=== PATIENT | male | born 2000 | race Caucasian/White ===

== ENCOUNTER 2020-07-16 18:44 | Emergency (ER) | payer MEDICAID ==
[2020-07-16 19:24] LABS: BILIRUBIN,URINE NEGATIVE (NEGATIVE); GLUCOSE, URINE (UA) NEGATIVE (NEGATIVE); KETONES,URINE (UA) TRACE mg/dL (NEGATIVE); LEUKOCYTE ESTERASE, URINE NEGATIVE (NEGATIVE); NITRITE,URINE NEGATIVE (NEGATIVE); OCCULT BLOOD,URINE MODERATE (NEGATIVE); PROTEIN,URINE TRACE mg/dL (NEGATIVE); UROBILINOGEN,URINE 0.2 (NORMAL) E.U./dL (NORMAL)
[2020-07-16 19:29] LABS: BACTERIA,URINE Rare /HPF (None Seen); CLARITY,URINE CLEAR (CLEAR); MUCUS,URINE Few Strands; SQUAMOUS EPITHELIAL CELL,UR FEW Squamous (<= Few); WBC,URINE 0-3 /HPF (0-3)
[2020-07-16] MEDS ORDERED: ACETAMINOPHEN 325 MG TABLET PO STA (19:42)
--- NOTE | 2020-07-16 22:28 | ED Physician Documentation ---
History of Present Illness - Stated complaint Stated Complaint: MALE - Chief complaint Chief Complaint: Abd Pain - History obtained from History obtained from: Patient - Additonal information Additional information: 19-year-old man, previously healthy presents with right testicular swelling and pain sudden in onset Wednesday after masturbating, improving after going to sleep and waking up asymptomatic on Wednesday. Patient denies possibility of STIs, stating that he has never been sexually active. denies urinary sx, penile discharge, lesions, lice or other abnormalities. He states he had a similar thing happen a couple years ago but it was milder and that's why he didn't come in right away. Review of Systems GI: denies: Abdominal Pain : reports: Testicular pain. denies: Dysuria, Frequency, Hesitancy, Testicular mass Skin: denies: Lesions, Abrasion (s), Laceration (s), Bite / sting Musculoskeletal: denies: Back pain PD PAST MEDICAL HISTORY - Present Medications Home Medications: Ambulatory Orders Medication Instructions Recorded Confirmed No Known Home Medications 07/16/20 07/16/20 - Allergies Allergies/Adverse Reactions: Allergies Allergy/AdvReac Type Severity Reaction Status Date / Time No Known Drug Allergies Allergy Verified 07/16/20 18:53 PD ED PE NORMAL - Vitals Vital signs reviewed: Yes - General General: Alert and oriented X 3, No acute distress, Well developed/nourished - HEENT HEENT: Atraumatic, PERRL, EOMI - Abdomen Abdomen: Non tender, Non distended - Male Male : 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 uncircumcised penis, clean with no visible smegma, lesions, discharge, or abnormalities) - Back Back: No CVA TTP - Derm Derm: Normal color, Warm and dry - Extremities Extremities: No deformity - Neuro Neuro: Alert and oriented X 3 - Psych Psych: Normal mood, Normal affect Results - Vitals Vitals: Vital Signs - 24 hr 07/16/20 07/16/20 07/16/20 18:53 22:35 22:36 Temperature 37.3 C 37.2 C 37.2 C Heart Rate 110 H 89 89 Respiratory 16 16 16 Rate Blood Pressure 132/88 H 130/72 130/72 O2 Saturation 97 100 100 Oxygen O2 Source Room air - Labs Labs: Laboratory Tests 07/16/20 07/16/20 19:09 19:09 Urine Color YELLOW Urine Clarity CLEAR Urine pH 6.0 Ur Specific [place] >=1.030 H Urine Protein TRACE Urine Glucose (UA) NEGATIVE Urine Ketones TRACE Urine Occult Blood MODERATE H Urine Nitrite NEGATIVE Urine Bilirubin NEGATIVE Urine Urobilinogen 0.2 (NORMAL) Ur Leukocyte Esterase NEGATIVE Urine RBC 6-10 H Urine WBC 0-3 Ur Squamous Epith Cells FEW Squamous Urine Bacteria Rare Urine Mucus Few Strands Ur Microscopic Review INDICATED Urine Culture Comments NOT INDICATED Chlam trachomat DNA PCR NEGATIVE N.gonorrhoeae DNA (PCR) NEGATIVE T. vaginalis (PCR) TNP PD MEDICAL DECISION MAKING - ED course ED course: 19-year-old presents with normal testicular exam and normal scrotal ultrasound with the exception of mild hyperemia to the epididymis which I discussed with the patient. He will follow up outpatient urology. Strict return precautions discussed. Departure - Departure Disposition: 01 Home, Self Care Clinical Impression: Testicular pain Condition: Good Instructions: ED Testicular Pain [facility] Follow-Up: Judy Clement MD [Physician No Access] - Comments: You were seen in the emergency department for testicular pain that happened a couple days ago. You have good blood flow to both testicles and had a normal physical exam. The only thing we found on ultrasound was that you have increased blood flow to the right epididymis, which is a part of your testicle on the top and back. you should follow-up with urology this week for further evaluation. Return to the emergency department if you experience any new or worsening symptoms or have other concerns. Discharge Date/Time: 07/16/20 22:36
--- NOTE | 2020-07-16 22:28 | Ultrasound Report ---
PROCEDURE: Testicle w/Doppler INDICATIONS: testicular swelling since wednesday TECHNIQUE: Real-time scanning was performed of the scrotum and testicles, with image documentation. Color and p ulse Doppler interrogation was performed of both testicles. COMPARISON: None. FINDINGS: Right: Testicle is normal in size at 3.8 x 1.7 x 3.1 cm, and homogenous in echotexture. Epididymis is normal in overall size and morphology. No hydrocele or varicoceles. Overlying scrotal skin is no rmal in thickness. Left: Testicle is normal in size at 3.4 x 1.6 x 2 cm, and homogeneous in echotexture. Epididymis is normal in overall size and morphology. No hydrocele or varicoceles. Overlying scrotal skin is norm al in thickness. Doppler: Color and pulse Doppler demonstrate slightly asymmetrically increased vascularity within th e right epididymis and testicle on color Doppler interrogation. IMPRESSION: 1. Slight asymmetric increased vascularity within the right epididymis and testicle compared to the l eft may reflect a mild epididymoorchitis. Reviewed by: Sampson Moy MD on 07/16/2020 10:27 PM PDT Approved by: Sampson Moy MD on 07/16/2020 10:27 PM PDT Station ID: [id number]
[2020-07-16 22:36] VITALS: BP 130/72
[2020-07-17 00:07] LABS: CHLAMYDIA TRACHOMATIS DNA NEGATIVE (NEGATIVE); NEISSERIA GONORRHOEAE DNA NEGATIVE (NEGATIVE)
== END 2020-07-16 22:36 | disposition home or self-care (01) ==
LOC: ED 18:44
DX: N50.811 Right testicular pain (principal); R68.89 Other general symptoms and signs
CPT/HCPCS: 76870; 81001; 87491; 87591; 93975; 99284; A9270; 81003; 87086; 87661

== ENCOUNTER 2020-09-06 16:41 | Emergency (ER) | payer MEDICAID ==
[2020-09-06 16:49] VITALS: BP 137/84
--- NOTE | 2020-09-06 17:42 | ED Physician Documentation ---
History of Present Illness - Stated complaint Stated Complaint: FACE SWELLING/NOSE PX - Chief complaint Chief Complaint: Heent - Additonal information Additional information: 19-year-old male presents emergency department for evaluation of acute right nasal pain as well as swelling on the right side of his face that began 3 days ago. He has had no fevers no nausea or vomiting. He does have some sinus congestion as well as a sore throat. He reports that he had blown his nose in the days before the symptoms began. Review of Systems Constitutional: denies: Fever, Chills Eyes: reports: Reviewed and negative Ears: reports: Reviewed and negative Nose: reports: Rhinorrhea / runny nose, Congestion, Other (Nasal pain. Facial swelling.) Throat: reports: Sore throat. denies: Dental pain / toothache, Oral lesions / sores Cardiac: reports: Reviewed and negative Respiratory: reports: Reviewed and negative GI: reports: Reviewed and negative : reports: Reviewed and negative PD PAST MEDICAL HISTORY - Past Medical History Past Medical History: No - Past Surgical History Past Surgical History: No - Present Medications Home Medications: Ambulatory Orders Medication Instructions Recorded Confirmed Mupirocin 2% Oint [Bactroban 2% 1 applic TOP BID #22 gm 09/06/20 Oint] Sulfamethox/Trimeth 800/160 1 each PO BID #14 tablet 09/06/20 [Bactrim Ds 800/160] - Allergies Allergies/Adverse Reactions: Allergies Allergy/AdvReac Type Severity Reaction Status Date / Time No Known Drug Allergies Allergy Verified 07/16/20 18:53 - Social History Does the pt smoke?: No Smoking Status: Never smoker Does the pt drink ETOH?: No - Immunizations Immunizations are current?: Yes PD ED PE EXPANDED - General General: Alert, No acute distress, Well developed/nourished - HEENT HEENT: Moist mucous membranes, Dentition normal, Other (Small carbuncle noted in the right lateral nares that when unroofed drained small amount of purulence. Small amount of swelling just lateral to the right nasolabial fold with tenderness but no erythema or fluctuance. No dental pain elicited.). No: Swollen tonsils, Tonsillar exudate - Neck Neck: Supple w/out meningeal sx. No: Adenopathy Results - Vitals Vitals: Vital Signs - 24 hr 09/06/20 16:48 Temperature 36.8 C Heart Rate 83 Respiratory 19 Rate Blood Pressure 137/84 H O2 Saturation 100 Oxygen O2 Source Room air PD MEDICAL DECISION MAKING - ED course Complexity details: d/w patient ED course: 19-year-old male presents emergency department for evaluation of right nasal pain as well as swelling on the right face just lateral to the nasolabial fold. On exam he did have a purulent dome in the nares that when unroofed and drained a small amount of purulent. Given the associated swelling lateral to that I suspect that he has a smaller tracking infection early abscess. Patient will be started on Bactrim. Advised warm compress to the area as well as mupirocin to the inner nares. Emergent return precautions were discussed for worsening symptoms. Departure - Departure Disposition: 01 Home, Self Care Clinical Impression: Cellulitis diffuse, face Condition: Stable Record reviewed to determine appropriate education?: Yes Prescriptions: Sulfamethox/Trimeth 800/160 [Bactrim Ds 800/160] 1 each PO BID #14 tablet Mupirocin 2% Oint [Bactroban 2% Oint] 1 applic TOP BID #22 gm Comments: Airel ceron the inside of your right nostril had a small pimple in it that was unroofed and had some milky fluid draining from it. I suspect that it is caused a small infection on the right side of your face. Please fill the prescription for the Bactrim and begin taking as directed. I would like you to apply warm compress to your face for 10 minutes 3 times a day. Please apply the mupirocin antibiotic ointment to the inside of both your nostrils twice daily. If any point you are having worsening symptoms please return immediately to the ER for a second look.
== END 2020-09-06 18:09 | disposition home or self-care (01) ==
LOC: ED 16:41
DX: L03.211 Cellulitis of face (principal); J34.0 Abscess, furuncle and carbuncle of nose
CPT/HCPCS: 99282; 99283

== ENCOUNTER 2020-12-20 19:47 | Emergency (ER) | payer MEDICAID ==
[2020-12-20 19:55] VITALS: BP 124/72
[2020-12-20 20:23] LABS: BILIRUBIN,URINE NEGATIVE (NEGATIVE); GLUCOSE, URINE (UA) NEGATIVE (NEGATIVE); KETONES,URINE (UA) NEGATIVE (NEGATIVE); LEUKOCYTE ESTERASE, URINE NEGATIVE (NEGATIVE); NITRITE,URINE NEGATIVE (NEGATIVE); OCCULT BLOOD,URINE TRACE-INTA (NEGATIVE); PROTEIN,URINE NEGATIVE (NEGATIVE); UROBILINOGEN,URINE 1 (NORMAL) E.U./dL (NORMAL)
[2020-12-20 20:27] LABS: CLARITY,URINE CLEAR (CLEAR)
--- NOTE | 2020-12-20 21:12 | ED Physician Documentation ---
History of Present Illness - Stated complaint Stated Complaint: MALE - Chief complaint Chief Complaint: General - Additonal information Additional information: 20-year-old male presents emergency department for evaluation of foreskin disch arge as well as the glans of his penis being irritated. He reports that he retracted the foreskin a few days ago and found a lot of smegma under there. He spent some time cleaning it. Thereafter then he noted that the glans of his penis was irritated and now when he retracts the foreskin he has more smegma than he is used to. He does not have dysuria. Review of Systems Constitutional: denies: Fever, Chills Eyes: reports: Reviewed and negative Nose: reports: Reviewed and negative Throat: reports: Reviewed and negative Cardiac: reports: Reviewed and negative Respiratory: reports: Reviewed and negative GI: reports: Reviewed and negative : reports: Other (Increased smegma production) Skin: reports: Rash PD PAST MEDICAL HISTORY - Past Surgical History Past Surgical History: No - Present Medications Home Medications: Ambulatory Orders Medication Instructions Recorded Confirmed Mupirocin 2% Oint [Bactroban 2% 1 applic TOP BID #22 gm 12/20/20 Oint] Nystatin Cream [Mycostatin Cream] 1 applic TOP BID #15 gm 12/20/20 - Allergies Allergies/Adverse Reactions: Allergies Allergy/AdvReac Type Severity Reaction Status Date / Time No Known Drug Allergies Allergy Verified 07/16/20 18:53 - Social History Does the pt smoke?: No Smoking Status: Never smoker Does the pt drink ETOH?: No - Immunizations Immunizations are current?: Yes PD ED PE EXPANDED - General General: Alert, No acute distress, Well developed/nourished - Neck Neck: Supple w/out meningeal sx - Male Male : Discharge, Normal lie/cremastaric. No: Circumcised (Foreskin is able to be fully retracted. When retracted the glans of the penis is noted to be mildly erythematous. Urinary meatus is patent. There is a small amount of thin yellow smegma noted. I am able to fully pull the foreskin back over the glans.), Testicular Mass, Tenderness, Cultures sent Results - Vitals Vitals: Vital Signs - 24 hr 12/20/20 19:53 Temperature 37.0 C Heart Rate 64 Respiratory 16 Rate Blood Pressure 124/72 O2 Saturation 99 Oxygen O2 Source Room air - Labs Labs: Laboratory Tests 12/20/20 20:11 Urine Color YELLOW Urine Clarity CLEAR Urine pH 7.0 Ur Specific [place] 1.020 Urine Protein NEGATIVE Urine Glucose (UA) NEGATIVE Urine Ketones NEGATIVE Urine Occult Blood TRACE-INTA Urine Nitrite NEGATIVE Urine Bilirubin NEGATIVE Urine Urobilinogen 1 (NORMAL) Ur Leukocyte Esterase NEGATIVE Ur Microscopic Review NOT INDICATED Urine Culture Comments NOT INDICATED PD MEDICAL DECISION MAKING - ED course Complexity details: considered differential, d/w patient ED course: 20-year-old male presents emergency department for evaluation of concerns that his foreskin and glans of his penis are irritated. He did report some smegma production about 3 days ago and it seems that he may have excessively cleaned the foreskin thus now having some glans irritation. Urine shows no signs of infection. He does not have phimosis or paraphimosis. No findings suggest a penile cellulitis. Patient has been seen previously in the past by urologist and he is interested in having a circumcision. I will advised patient to use nysta tin cream followed by mupirocin ointment. Discussed that he should not excessively clean the glans of his penis as this may cause the irritation increased smegma production. Emergent return precautions discussed. Departure - Departure Disposition: 01 Home, Self Care Clinical Impression: Penile irritation Condition: Stable Record reviewed to determine appropriate education?: Yes Prescriptions: Mupirocin 2% Oint [Bactroban 2% Oint] 1 applic TOP BID #22 gm Nystatin Cream [Mycostatin Cream] 1 applic TOP BID #15 gm Comments: Ariel I suspect that when you cleanse your glands the other day you may have irritated it. A small amount of smegma is normal. I recommend that you fill the prescription for the nystatin and mupirocin creams. Apply a thin dab to your fingers mixed together and then apply to the glans of your penis with the foreskin retracted. You may benefit from referral by urologist for evaluation of whether a circumcision is important. Return to the emergency department if you find that your symptoms are not improved. [facility] [place].
== END 2020-12-20 21:24 | disposition home or self-care (01) ==
LOC: ED 19:47
DX: N48.89 Other specified disorders of penis (principal)
CPT/HCPCS: 81001; 81003; 87086; 99282; 99283